=== PATIENT | male | born 1945 | race Caucasian/White ===

== ENCOUNTER 2020-02-13 09:28 | Inpatient (IN) ==
[2020-02-13] MEDS ORDERED: GLUCAGON 1 MG VIAL IM PRN ×3 (09:34→23:04)
[2020-02-13] MEDS ORDERED: DEXTROSE 50% 25 GM/50 ML VIAL IV PRN ×3 (09:34→23:04)
[2020-02-13] MEDS ORDERED: carvediloL 12.5 MG TABLET PO SCH (21:00)
[2020-02-13] MEDS: CHLORHEXIDINE 0.12% ORAL RINSE 60 ML BOTTLE SWISH/SPIT SCH (21:31)
[2020-02-13] MEDS: GABAPENTIN 300 MG CAPSULE PO SCH (21:32)
[2020-02-13] MEDS: METOPROLOL TARTRATE 25 MG TABLET PO SCH (21:32)
[2020-02-13] MEDS: SODIUM CHLORIDE 0.9% 1,000 ML IV SCH (21:32)
[2020-02-14 05:13] LABS: ABG HCO3 20.7 MMOL/L (20-26); ABG Oxygen Saturation 95.7 % (95-100); ABG PCO2 36.5 MM HG (35-48); ABG PH 7.371 (7.35-7.45); ABG PO2 82.8 MM HG (80-95); ABG TCO2 21.8 MMOL/L (23-27)
[2020-02-14 05:17] LABS: Basophils % 0.5 % (0.0-0.8); Eosinophils # 0.2 10*3/uL (0.0-0.87); Hematocrit 39.2 VOL% (42.0-52.0); Hemoglobin 12.5 GM/DL (14.0-18.0); Immature Granulocytes % 0.6 %; Immature Granulocytes Absolute 0.05 #; Lymphocytes # 2.3 10*3/uL (1.4-4.0); Lymphocytes % 27.9 % (21.2-54.2); Mean Corpuscular HGB Conc 31.9 GM/DL (32-36); Mean Corpuscular Volume 89.7 FL (87-102); Mean Platelet Volume 10.1 FL (9.6-12.0); Monocytes % 8.5 % (1.7-12.7); Neutrophils % 60.5 % (38.7-73.9); Platelet Count 319 T/CUMM (130-400); Red Blood Count 4.37 MC/CUMM (3.8-5.5); Red Cell Distribution Width 13.5 % (9.3-17.3); White Blood Count 8.3 T/CUMM (4-12)
[2020-02-14 05:39] LABS: Albumin 2.4 G/DL (3.4-5.0); Bilirubin,Total 1.1 MG/DL (0.2-1.0); Calcium 8.2 MG/DL (8.5-10.1); Osmolality,Calculated 294.4 MOS/KG (273-304); Total Protein 6.3 G/DL (6.4-8.3)
[2020-02-14 05:44] LABS: Troponin I 9.42 NG/ML (0.00-0.045)
[2020-02-14] MEDS: INSULIN LISPRO 100 UNIT/ML SUBCUT SCH ×4 (09:04→20:22)
[2020-02-14] MEDS: amLODIPine 5 MG TABLET PO SCH (09:57)
[2020-02-14] MEDS: ATORVASTATIN 80 MG TABLET PO SCH (09:57)
[2020-02-14] MEDS: METOPROLOL TARTRATE 25 MG TABLET PO SCH ×2 (09:57→20:22)
[2020-02-14] MEDS: GABAPENTIN 300 MG CAPSULE PO SCH ×2 (09:57→20:22)
[2020-02-14] MEDS: SODIUM CHLORIDE 0.9% 1,000 ML IV SCH (11:17)
[2020-02-14] MEDS ORDERED: DIAZEPAM 5 MG TABLET PO ONE (13:19)
[2020-02-14] MEDS ORDERED: FAMOTIDINE 20 MG TABLET PO ONE (13:19)
[2020-02-14] MEDS: CHLORHEXIDINE 4% SOLN 118 ML BOTTLE TOP SCH ×2 (14:30→21:35)
[2020-02-14] MEDS: CHLORHEXIDINE 0.12% ORAL RINSE 60 ML BOTTLE SWISH/SPIT SCH ×2 (18:00→20:23)
[2020-02-15] MEDS ORDERED: PAPAVERINE 60 MG/2 ML VIAL ONE (04:21)
[2020-02-15] MEDS ORDERED: VANCOMYCIN 500 MG VIAL ONE (04:22)
[2020-02-15] MEDS ORDERED: VANCOMYCIN 1,000 MG VIAL ONE (04:22)
[2020-02-15] MEDS: CHLORHEXIDINE 4% SOLN 118 ML BOTTLE TOP SCH ×2 (04:37→08:21)
[2020-02-15] MEDS ORDERED: LIDOCAINE 2% 5 ML VIAL ONE ×2 (05:39→10:30)
[2020-02-15] MEDS ORDERED: CALCIUM CHLORIDE 1,000 MG/10 ML VIAL IV ONE (05:39)
[2020-02-15] MEDS ORDERED: PHENYLEPHRINE DRIP 20 MG/250 ML PREMIX IV ONE (05:40)
[2020-02-15] MEDS ORDERED: MIDAZOLAM 10 MG/2 ML VIAL ONE (05:40)
[2020-02-15] MEDS ORDERED: SUFentanil 250 MCG/5 ML AMP ONE (05:40)
[2020-02-15] MEDS ORDERED: ePHEDrine 50 MG/ML VIAL ONE (05:40)
[2020-02-15] MEDS ORDERED: HEPARIN/NACL 0.9% 2 UNITS/ML 500 ML IV ONE (05:40)
[2020-02-15] MEDS ORDERED: SODIUM CHLORIDE 0.9% 250 ML IV ONE (05:41)
[2020-02-15] MEDS ORDERED: SODIUM CHLORIDE 0.9% 1,000 ML IV ONE (05:41)
[2020-02-15] MEDS ORDERED: SODIUM CHLORIDE 0.9% 100 ML IV ONE (05:41)
[2020-02-15] MEDS ORDERED: ETOMIDATE 40 MG/20 ML VIAL IV ONE (05:41)
[2020-02-15] MEDS ORDERED: MINERAL OIL/PETROLATUM OPH OINT 3.5 GM TUBE ONE (05:41)
[2020-02-15] MEDS ORDERED: VECURONIUM 10 MG VIAL IV ONE (05:41)
[2020-02-15] MEDS ORDERED: LACTATED RINGERS 1,000 ML IV ONE (05:41)
[2020-02-15] MEDS ORDERED: NITROGLYCERIN DRIP 50 MG/250 ML BOTTLE IV ONE ×2 (05:41→15:46)
[2020-02-15] MEDS ORDERED: AMINOCAPROIC ACID 5,000 MG/20 ML VIAL ONE (05:41)
[2020-02-15] MEDS: METOPROLOL TARTRATE 25 MG TABLET PO SCH ×2 (05:57→08:21)
[2020-02-15] MEDS ORDERED: CEFUROXIME INJ 1,500 MG in SYRINGE 1 EACH IV ONE (06:00)
[2020-02-15] MEDS ORDERED: DIAZEPAM 5 MG TABLET PO ONE (06:30)
[2020-02-15] MEDS ORDERED: FAMOTIDINE 20 MG TABLET PO ONE (06:30)
[2020-02-15 07:40] LABS: ABG Base Excess -4.1 MMOL/L (-2.5-2.5); ABG HCO3 21.1 MMOL/L (20-26); ABG PCO2 34.6 MM HG (35-48); ABG PH 7.377 (7.35-7.45); ABG TCO2 17.9 MMOL/L (23-27); Glucose Heart Surgery 155 MG/DL (74-106); Hematocrit Heart Surgery 38.7 PERCENT (42-52); Hemoglobin Heart Surgery 12.6 G/DL (14.0-18.0); Ionized Calcium Arterial 1.22 MMOL/L (1.21-1.46); PCO2 Patient Temp Arterial 34.6 MMHG; PH Patient Temp Arterial 7.377; Patient Temperature 37 CELCIUS; Potassium Heart/CVR 4.2 MMOL/L (3.5-5.1); Sodium Heart/CVR 138 MMOL/L (135-145)
[2020-02-15] MEDS ORDERED: ALBUMIN 5% 12.5 GM/250 ML VIAL IV ONE (08:00)
[2020-02-15] MEDS ORDERED: PHENYLEPHRINE DRIP 40 MG/250 ML PREMIX IV ONE (08:00)
[2020-02-15 08:08] LABS: Apearance,Urine CLEAR (Clear); Bilirubin,Urine Negative (Negative); Blood, Urine Small mg/dL (Negative); Glucose,Urine (UA) Negative (Negative); Ketones,Urine Negative (Negative); Mucus,Urine Occasional /LPF (Occasional); Nitrite,Urine Negative (Negative); Protein,Urine Negative; RBC,Urine <1 /HPF (0-4); Urine Color Yellow (Yellow); Urine Specific Gravity 1.012 (1.001-1.035); Urine Urobilinogen < 2.0 EU/DL (0.2-1.0); WBC,Urine <1 /HPF (0-6)
[2020-02-15] MEDS: INSULIN LISPRO 100 UNIT/ML SUBCUT SCH ×2 (08:21→10:43)
[2020-02-15] MEDS: ATORVASTATIN 80 MG TABLET PO SCH (08:21)
[2020-02-15] MEDS: GABAPENTIN 300 MG CAPSULE PO SCH (08:22)
[2020-02-15] MEDS: amLODIPine 5 MG TABLET PO SCH (08:22)
[2020-02-15] MEDS: CHLORHEXIDINE 0.12% ORAL RINSE 60 ML BOTTLE SWISH/SPIT SCH ×2 (08:22→21:47)
[2020-02-15 09:09] LABS: PCO2 Patient Temp Venous 30.3 MM HG; PH Patient Temp Venous 7.458; PO2 Patient Temp Venous 50.7 MM HG; Potassium Heart/CVR 4.8 MMOL/L (3.5-5.1); VBG Base Excess -1.8 MEQ/L (0-4); VBG HCO3 22.8 MEQ/L (24-28); VBG Oxygen Saturation 91.8 %; VBG PCO2 33.4 MMHG (41-51); VBG PH 7.428; VBG PO2 57.9 MMHG (17-40)
[2020-02-15 09:34] LABS: Hematocrit Heart Surgery 26.7 PERCENT (42-52); Hemoglobin Heart Surgery 8.6 G/DL (14.0-18.0); PCO2 Patient Temp Venous 28.2 MM HG; PH Patient Temp Venous 7.473; PO2 Patient Temp Venous 41.1 MM HG; Potassium Heart/CVR 4.9 MMOL/L (3.5-5.1); VBG Base Excess -2.2 MEQ/L (0-4); VBG HCO3 22.4 MEQ/L (24-28); VBG Oxygen Saturation 87.3 %; VBG PCO2 32.6 MMHG (41-51); VBG PH 7.428; VBG PO2 50.4 MMHG (17-40)
[2020-02-15] MEDS ORDERED: THROMBIN TOPICAL (RECOMBINANT) 5,000 UNIT VIAL TOP ONE (10:04)
[2020-02-15 10:30] LABS: ABG Base Excess -2.2 MMOL/L (-2.5-2.5); ABG HCO3 21.8 MMOL/L (20-26); ABG Oxygen Saturation 98.9 % (95-100); ABG PCO2 34.1 MM HG (35-48); ABG PH 7.423 (7.35-7.45); ABG PO2 458.3 MM HG (80-95); ABG TCO2 22.8 MMOL/L (23-27); Glucose Heart Surgery 223 MG/DL (74-106); Hemoglobin Heart Surgery 9.5 G/DL (14.0-18.0); Ionized Calcium Arterial 1.13 MMOL/L (1.21-1.46); PCO2 Patient Temp Arterial 34.1 MMHG; PH Patient Temp Arterial 7.423; PO2 Patient Temp Arterial 458.3 MM HG; Patient Temperature 37 CELCIUS; Potassium Heart/CVR 4.6 MMOL/L (3.5-5.1); Sodium Heart/CVR 133 MMOL/L (135-145)
[2020-02-15] MEDS ORDERED: ALBUMIN 25% 25 GM/100 ML VIAL IV ONE (10:30)
[2020-02-15] MEDS ORDERED: DEXTROSE 5% KCL 20 MEQ 20 MEQ/1,000 ML BAG IV ONE (10:30)
[2020-02-15] MEDS ORDERED: HEPARIN 10,000 UNIT/10 ML VIAL ONE (10:30)
[2020-02-15] MEDS ORDERED: MAGNESIUM SULFATE 5 GM/10 ML VIAL IV ONE (10:30)
[2020-02-15] MEDS ORDERED: PROTAMINE SULFATE 250 MG/25 ML VIAL IV ONE (10:30)
[2020-02-15] MEDS ORDERED: methylPREDNISolone SOD SUC 1,000 MG/8 ML VIAL ONE (10:30)
[2020-02-15] MEDS ORDERED: SODIUM BICARBONATE 50 MEQ/50 ML VIAL IV ONE (10:30)
[2020-02-15] MEDS ORDERED: MANNITOL 100 GM/500 ML BAG IV ONE (10:30)
[2020-02-15] MEDS ORDERED: FUROSEMIDE 20 MG/2 ML VIAL ONE (10:30)
[2020-02-15] MEDS: SODIUM CHLORIDE 0.9% 1,000 ML IV SCH (10:43)
[2020-02-15] MEDS ORDERED: DOBUTamine 500 MG/250 ML PREMIX IV ONE (10:50)
[2020-02-15] MEDS ORDERED: DOBUTamine 500 MG/250 ML PREMIX IV PRN (11:08)
[2020-02-15] MEDS: LACTATED RINGERS 1,000 ML IV PRN ×2 (11:15→16:13)
[2020-02-15] MEDS ORDERED: SEVOFLURANE 1 UNIT/15 MINUTE INH ONE (11:24)
[2020-02-15] MEDS ORDERED: PHENYLEPHRINE DRIP 40 MG/250 ML PREMIX IV PRN (11:32)
[2020-02-15] MEDS ORDERED: CHLORHEXIDINE 4% SOLN 118 ML BOTTLE TOP PRN (11:32)
[2020-02-15] MEDS ORDERED: MAGNESIUM SULF RIDER 2 GM in PREMIX 1 EACH IV PRN (11:32)
[2020-02-15] MEDS ORDERED: NITROPRUSSIDE 100 MG in DEXTROSE 5% 250 ML IV PRN (11:32)
[2020-02-15] MEDS ORDERED: VECURONIUM 10 MG VIAL IV PRN ×2 (11:32)
[2020-02-15] MEDS ORDERED: DEXTROSE 50% 25 GM/50 ML VIAL IV PRN ×2 (11:32)
[2020-02-15] MEDS ORDERED: MORPHINE 10 MG/1 ML VIAL IV PRN (11:32)
[2020-02-15] MEDS ORDERED: SODIUM CHLORIDE 0.45% 1,000 ML IV SCH ×2 (11:32)
[2020-02-15] MEDS ORDERED: INSULIN REGULAR 100 UNIT/ML IV ONE (11:32)
[2020-02-15] MEDS ORDERED: MAGNESIUM SULF RIDER 4 GM in PREMIX 1 EACH IV PRN (11:32)
[2020-02-15] MEDS ORDERED: MIDAZOLAM 10 MG/2 ML VIAL IV PRN (11:32)
[2020-02-15] MEDS ORDERED: ACETAMINOPHEN 650 MG SUPP RECTAL PRN (11:32)
[2020-02-15] MEDS ORDERED: LACTATED RINGERS 250 ML IV PRN (11:32)
[2020-02-15] MEDS ORDERED: MIDAZOLAM 2 MG/2 ML VIAL IV PRN (11:32)
[2020-02-15] MEDS ORDERED: POTASSIUM CHLORIDE RIDER 20 MEQ in PREMIX 1 EACH IV PRN (11:32)
[2020-02-15] MEDS ORDERED: INSULIN REGULAR 100 UNIT/ML IV PRN (11:32)
[2020-02-15] MEDS ORDERED: INSULIN REGULAR DRIP 100 ML IV SCH (11:32)
[2020-02-15] MEDS ORDERED: CALCIUM CHLORIDE 1,000 MG/10 ML SYRINGE IV PRN (11:32)
[2020-02-15] MEDS ORDERED: ONDANSETRON 4 MG/2 ML VIAL IV PRN (11:32)
[2020-02-15 11:39] LABS: ABG Base Excess -2.4 MMOL/L (-2.5-2.5); ABG HCO3 22.4 MMOL/L (20-26); ABG Oxygen Saturation 98.2 % (95-100); ABG PCO2 33.5 MM HG (35-48); ABG PH 7.414 (7.35-7.45); ABG TCO2 19.1 MMOL/L (23-27); Glucose Heart Surgery 218 MG/DL (74-106); Hemoglobin Heart Surgery 11.3 G/DL (14.0-18.0); Potassium Heart/CVR 3.8 MMOL/L (3.5-5.1)
[2020-02-15 11:42] LABS: Basophils % 0.3 % (0.0-0.8); Eosinophils # 0.1 10*3/uL (0.0-0.87); Eosinophils % 0.5 % (0.00-10.9); Hematocrit 30.6 VOL% (42.0-52.0); Hemoglobin 10.1 GM/DL (14.0-18.0); Immature Granulocytes Absolute 0.12 #; Lymphocytes # 1.2 10*3/uL (1.4-4.0); Lymphocytes % 10.1 % (21.2-54.2); Mean Corpuscular Volume 87.9 FL (87-102); Monocytes % 4.8 % (1.7-12.7); Neutrophils % 83.3 % (38.7-73.9); Platelet Count 218 T/CUMM (130-400); Red Blood Count 3.48 MC/CUMM (3.8-5.5); Red Cell Distribution Width 13.4 % (9.3-17.3); White Blood Count 11.9 T/CUMM (4-12)
[2020-02-15] MEDS: ALBUMIN 5% 12.5 GM in PREMIX 1 EACH IV PRN ×5 (11:45→16:15)
[2020-02-15 12:04] LABS: INR 1.4; PT Patient Result 14.6 SECS (9.8-11.9); Partial Thromboplastin Time 31.7 SECS (23.9-33.8)
[2020-02-15 12:05] LABS: Albumin 2.4 G/DL (3.4-5.0); Bilirubin,Total 1.9 MG/DL (0.2-1.0); Calcium 7.9 MG/DL (8.5-10.1); Osmolality,Calculated 290.5 MOS/KG (273-304); Total Protein 5.5 G/DL (6.4-8.3)
[2020-02-15 12:07] LABS: CKMB % 9.9 %
[2020-02-15 12:10] LABS: Troponin I 13.2 NG/ML (0.00-0.045)
[2020-02-15 12:54] LABS: ABG Base Excess -4.4 MMOL/L (-2.5-2.5); ABG Oxygen Saturation 96.9 % (95-100); ABG PCO2 29.4 MM HG (35-48); ABG PH 7.428 (7.35-7.45); ABG PO2 95.7 MM HG (80-95); ABG TCO2 19.9 MMOL/L (23-27); Glucose Heart Surgery 211 MG/DL (74-106); Hemoglobin Heart Surgery 10.9 G/DL (14.0-18.0); Potassium Heart/CVR 3.7 MMOL/L (3.5-5.1)
[2020-02-15] MEDS: POTASSIUM CHLORIDE RIDER 10 MEQ in PREMIX 1 EACH IV PRN (13:00)
[2020-02-15 13:30] LABS: VBG Base Excess -2.9 MEQ/L (0-4); VBG HCO3 21.3 MEQ/L (24-28); VBG Oxygen Saturation 56.9 %; VBG PCO2 36.4 MMHG (41-51); VBG PH 7.382
[2020-02-15 14:15] LABS: ABG Base Excess -4.5 MMOL/L (-2.5-2.5); ABG HCO3 18.9 MMOL/L (20-26); ABG Oxygen Saturation 95.6 % (95-100); ABG PCO2 29.6 MM HG (35-48); ABG PH 7.424 (7.35-7.45); ABG PO2 83.1 MM HG (80-95); ABG TCO2 19.9 MMOL/L (23-27); Glucose Heart Surgery 190 MG/DL (74-106); Hemoglobin Heart Surgery 10.6 G/DL (14.0-18.0)
[2020-02-15 15:52] LABS: ABG Base Excess -2.6 MMOL/L (-2.5-2.5); ABG HCO3 22.2 MMOL/L (20-26); ABG Oxygen Saturation 98.8 % (95-100); ABG PH 7.435 (7.35-7.45); Glucose Heart Surgery 184 MG/DL (74-106); Hematocrit Heart Surgery 29.5 PERCENT (42-52); Hemoglobin Heart Surgery 9.5 G/DL (14.0-18.0); Potassium Heart/CVR 3.9 MMOL/L (3.5-5.1)
[2020-02-15] MEDS ORDERED: NITROGLYCERIN DRIP 50 MG/250 ML BOTTLE IV PRN (15:54)
[2020-02-15] MEDS: MORPHINE 4 MG/1 ML VIAL IV PRN ×2 (19:40→22:50)
[2020-02-15] MEDS: CEFUROXIME INJ 1,500 MG in SYRINGE 1 EACH IV SCH (19:43)
[2020-02-15 19:54] LABS: ABG Base Excess -2.3 MMOL/L (-2.5-2.5); ABG HCO3 22.5 MMOL/L (20-26); ABG Oxygen Saturation 98.9 % (95-100); ABG PCO2 33.3 MM HG (35-48); ABG PH 7.422 (7.35-7.45); ABG TCO2 20.1 MMOL/L (23-27); Glucose Heart Surgery 180 MG/DL (74-106); Hematocrit Heart Surgery 25.7 PERCENT (42-52); Hemoglobin Heart Surgery 8.3 G/DL (14.0-18.0); Potassium Heart/CVR 3.9 MMOL/L (3.5-5.1)
[2020-02-15 20:41] LABS: CKMB % 7.8 %
[2020-02-15 20:44] LABS: Troponin I 14.4 NG/ML (0.00-0.045)
[2020-02-15 21:58] LABS: ABG Base Excess -3.3 MMOL/L (-2.5-2.5); ABG HCO3 21.7 MMOL/L (20-26); ABG Oxygen Saturation 98.1 % (95-100); ABG PCO2 33.5 MM HG (35-48); ABG PO2 97.5 MM HG (80-95); ABG TCO2 18.7 MMOL/L (23-27); Glucose Heart Surgery 175 MG/DL (74-106); Hematocrit Heart Surgery 33.5 PERCENT (42-52); Hemoglobin Heart Surgery 10.8 G/DL (14.0-18.0); Potassium Heart/CVR 3.9 MMOL/L (3.5-5.1)
[2020-02-15 23:37] LABS: ABG Base Excess -3.6 MMOL/L (-2.5-2.5); ABG HCO3 20.6 MMOL/L (20-26); ABG Oxygen Saturation 97.4 % (95-100); ABG PCO2 34.3 MM HG (35-48); ABG PH 7.396 (7.35-7.45); ABG PO2 105.7 MM HG (80-95); ABG TCO2 21.6 MMOL/L (23-27); Glucose Heart Surgery 126 MG/DL (74-106); Hemoglobin Heart Surgery 11.3 G/DL (14.0-18.0); Potassium Heart/CVR 3.7 MMOL/L (3.5-5.1)
[2020-02-16] MEDS: ALBUMIN 5% 12.5 GM in PREMIX 1 EACH IV PRN ×2 (00:07→00:19)
[2020-02-16] MEDS: POTASSIUM CHLORIDE RIDER 10 MEQ in PREMIX 1 EACH IV PRN (00:31)
[2020-02-16 03:35] LABS: ABG Base Excess -5.5 MMOL/L (-2.5-2.5); ABG HCO3 19.9 MMOL/L (20-26); ABG Oxygen Saturation 98.1 % (95-100); ABG PCO2 36.4 MM HG (35-48); ABG PH 7.341 (7.35-7.45); ABG TCO2 17.9 MMOL/L (23-27); Glucose Heart Surgery 166 MG/DL (74-106); Hematocrit Heart Surgery 31.7 PERCENT (42-52); Hemoglobin Heart Surgery 10.3 G/DL (14.0-18.0); Potassium Heart/CVR 4.2 MMOL/L (3.5-5.1)
[2020-02-16 03:42] LABS: Basophils % 0.1 % (0.0-0.8); Hematocrit 28.9 VOL% (42.0-52.0); Hemoglobin 9.6 GM/DL (14.0-18.0); Immature Granulocytes % 0.3 %; Immature Granulocytes Absolute 0.04 #; Lymphocytes # 0.9 10*3/uL (1.4-4.0); Lymphocytes % 7.5 % (21.2-54.2); Mean Corpuscular HGB Conc 33.2 GM/DL (32-36); Mean Corpuscular Volume 87.8 FL (87-102); Mean Platelet Volume 10.7 FL (9.6-12.0); Monocytes % 3.3 % (1.7-12.7); Neutrophils % 88.8 % (38.7-73.9); Platelet Count 153 T/CUMM (130-400); Red Blood Count 3.29 MC/CUMM (3.8-5.5); Red Cell Distribution Width 13.6 % (9.3-17.3); White Blood Count 12.3 T/CUMM (4-12)
[2020-02-16 03:59] LABS: Albumin 3.5 G/DL (3.4-5.0); Bilirubin,Direct 0.52 MG/DL (0.0-0.20); Bilirubin,Total 1.8 MG/DL (0.2-1.0); Calcium 7.4 MG/DL (8.5-10.1); Osmolality,Calculated 289.3 MOS/KG (273-304); Total Protein 5.7 G/DL (6.4-8.3)
[2020-02-16 04:44] LABS: CKMB % 10.2 %
[2020-02-16 05:05] LABS: ABG HCO3 19.5 MMOL/L (20-26); ABG Oxygen Saturation 97.3 % (95-100); ABG PCO2 36.8 MM HG (35-48); ABG TCO2 17.7 MMOL/L (23-27); Glucose Heart Surgery 199 MG/DL (74-106); Hematocrit Heart Surgery 31.8 PERCENT (42-52); Hemoglobin Heart Surgery 10.3 G/DL (14.0-18.0); Potassium Heart/CVR 4.1 MMOL/L (3.5-5.1)
[2020-02-16] MEDS ORDERED: FUROSEMIDE 40 MG/4 ML VIAL ONE (05:10)
[2020-02-16] MEDS ORDERED: FUROSEMIDE 40 MG/4 ML VIAL IV ONE (05:30)
[2020-02-16 06:13] LABS: ABG Base Excess -5.5 MMOL/L (-2.5-2.5); ABG HCO3 19.9 MMOL/L (20-26); ABG Oxygen Saturation 97.4 % (95-100); ABG PCO2 35.8 MM HG (35-48); ABG PH 7.346 (7.35-7.45); ABG PO2 94.9 MM HG (80-95); ABG TCO2 17.8 MMOL/L (23-27); Glucose Heart Surgery 194 MG/DL (74-106); Hematocrit Heart Surgery 32.2 PERCENT (42-52); Hemoglobin Heart Surgery 10.4 G/DL (14.0-18.0)
[2020-02-16] MEDS: CEFUROXIME INJ 1,500 MG in SYRINGE 1 EACH IV SCH ×2 (06:54→19:40)
[2020-02-16] MEDS: INSULIN REGULAR 100 UNIT/ML SUBCUT SCH ×4 (08:50→20:14)
[2020-02-16] MEDS: CHLORHEXIDINE 0.12% ORAL RINSE 60 ML BOTTLE SWISH/SPIT SCH ×2 (08:52→20:31)
[2020-02-16] MEDS: SODIUM CHLOR 0.45% KCL 20 MEQ 20 MEQ/1,000 ML BAG IV SCH (08:52)
[2020-02-16] MEDS: carvediloL 12.5 MG TABLET PO SCH ×2 (09:32→21:46)
[2020-02-16] MEDS: AMIODARONE 200 MG TABLET PO SCH ×2 (09:32→21:41)
[2020-02-16] MEDS: GABAPENTIN 600 MG TABLET PO SCH (09:32)
[2020-02-16] MEDS: ASPIRIN EC 325 MG TABLET PO SCH (09:32)
[2020-02-16] MEDS: PANTOPRAZOLE 40 MG TABLET PO SCH (09:32)
[2020-02-16 11:15] LABS: CKMB % 12.5 %
[2020-02-16] MEDS: oxyCODONE/ACETAMINOPHEN 5-325 MG TABLET PO PRN (18:15)
[2020-02-16 18:29] LABS: CKMB % 11.5 %
[2020-02-16 18:30] LABS: Troponin I 19.1 NG/ML (0.00-0.045)
[2020-02-16] MEDS ORDERED: FUROSEMIDE 40 MG/4 ML VIAL IV PRN (20:32)
[2020-02-16] MEDS: ATORVASTATIN 40 MG TABLET PO SCH (21:41)
[2020-02-17] MEDS: INSULIN REGULAR 100 UNIT/ML SUBCUT SCH ×5 (01:03→21:42)
[2020-02-17 04:05] LABS: Basophils % 0.1 % (0.0-0.8); Hematocrit 34.1 VOL% (42.0-52.0); Hemoglobin 11.2 GM/DL (14.0-18.0); Immature Granulocytes % 0.4 %; Immature Granulocytes Absolute 0.07 #; Lymphocytes # 1.1 10*3/uL (1.4-4.0); Mean Corpuscular HGB Conc 32.8 GM/DL (32-36); Mean Corpuscular Volume 88.8 FL (87-102); Mean Platelet Volume 11.1 FL (9.6-12.0); Monocytes % 7.7 % (1.7-12.7); Neutrophils % 85.8 % (38.7-73.9); Platelet Count 175 T/CUMM (130-400); Red Blood Count 3.84 MC/CUMM (3.8-5.5); Red Cell Distribution Width 14.2 % (9.3-17.3)
[2020-02-17 04:29] LABS: Albumin 3.4 G/DL (3.4-5.0); Bilirubin,Direct 0.45 MG/DL (0.0-0.20); Bilirubin,Total 1.3 MG/DL (0.2-1.0); Calcium 8.4 MG/DL (8.5-10.1); Osmolality,Calculated 291.5 MOS/KG (273-304); Total Protein 6.5 G/DL (6.4-8.3)
[2020-02-17 04:53] LABS: CKMB % 10.6 %
[2020-02-17 04:56] LABS: Troponin I 17.4 NG/ML (0.00-0.045)
[2020-02-17] MEDS: ASPIRIN EC 325 MG TABLET PO SCH (08:18)
[2020-02-17] MEDS: CHLORHEXIDINE 0.12% ORAL RINSE 60 ML BOTTLE SWISH/SPIT SCH ×3 (08:18→21:45)
[2020-02-17] MEDS: carvediloL 12.5 MG TABLET PO SCH ×2 (08:18→21:42)
[2020-02-17] MEDS: AMIODARONE 200 MG TABLET PO SCH ×2 (08:18→21:41)
[2020-02-17] MEDS: GABAPENTIN 600 MG TABLET PO SCH (08:18)
[2020-02-17] MEDS: PANTOPRAZOLE 40 MG TABLET PO SCH (08:18)
[2020-02-17] MEDS ORDERED: SODIUM CHLOR 0.45% KCL 20 MEQ 20 MEQ/1,000 ML BAG IV SCH (12:42)
[2020-02-17] MEDS ORDERED: GLUCAGON 1 MG VIAL IM PRN ×2 (12:42→20:55)
[2020-02-17] MEDS ORDERED: ACETAMINOPHEN 325 MG TABLET PO PRN (12:42)
[2020-02-17] MEDS ORDERED: ONDANSETRON 4 MG/2 ML VIAL IV PRN (12:42)
[2020-02-17] MEDS ORDERED: ALUMINUM/MAGNES/SIMETH MAX STR 30 ML UDCUP PO PRN (12:42)
[2020-02-17] MEDS ORDERED: DEXTROSE 50% 25 GM/50 ML VIAL IV PRN ×2 (12:42→20:55)
[2020-02-17] MEDS ORDERED: ZALEPLON 5 MG CAPSULE PO PRN (12:42)
[2020-02-17] MEDS ORDERED: MAGNESIUM SULF RIDER 4 GM in PREMIX 1 EACH IV PRN (12:42)
[2020-02-17] MEDS ORDERED: MAGNESIUM SULF RIDER 2 GM in PREMIX 1 EACH IV PRN (12:42)
[2020-02-17] MEDS: FERROUS SULFATE 325 MG TABLET PO SCH (13:04)
[2020-02-17] MEDS: SODIUM CHLOR 0.45% KCL 20 MEQ 20 MEQ/1,000 ML BAG IV SCH (13:05)
[2020-02-17] MEDS: DOCUSATE SODIUM 100 MG CAPSULE PO SCH (13:08)
[2020-02-17] MEDS: MAGNESIUM HYDROXIDE SUSP 30 ML UDCUP PO PRN (21:41)
[2020-02-17] MEDS: ATORVASTATIN 40 MG TABLET PO SCH (21:42)
[2020-02-18 05:32] LABS: Basophils % 0.1 % (0.0-0.8); Eosinophils % 0.1 % (0.00-10.9); Hematocrit 35.6 VOL% (42.0-52.0); Hemoglobin 11.5 GM/DL (14.0-18.0); Immature Granulocytes % 0.6 %; Lymphocytes # 1.7 10*3/uL (1.4-4.0); Mean Corpuscular HGB Conc 32.3 GM/DL (32-36); Mean Corpuscular Volume 90.1 FL (87-102); Mean Platelet Volume 11.2 FL (9.6-12.0); Monocytes % 11.3 % (1.7-12.7); Neutrophils % 76.9 % (38.7-73.9); Platelet Count 175 T/CUMM (130-400); Red Blood Count 3.95 MC/CUMM (3.8-5.5); Red Cell Distribution Width 14.4 % (9.3-17.3); White Blood Count 15.6 T/CUMM (4-12)
[2020-02-18] MEDS ORDERED: FUROSEMIDE 40 MG/4 ML VIAL IV ONE (06:00)
[2020-02-18 06:03] LABS: Albumin 3.2 G/DL (3.4-5.0); Bilirubin,Direct 0.37 MG/DL (0.0-0.20); Bilirubin,Direct 0.38 MG/DL (0.0-0.20); Bilirubin,Indirect 1.3 MG/DL (0.0-1.0); Bilirubin,Total 1.7 MG/DL (0.2-1.0); CKMB % 7.6 %; Calcium 8.2 MG/DL (8.5-10.1); Osmolality,Calculated 294.4 MOS/KG (273-304); Total Protein 6.4 G/DL (6.4-8.3); Total Protein 6.5 G/DL (6.4-8.3)
[2020-02-18 06:04] LABS: Troponin I 11.9 NG/ML (0.00-0.045)
[2020-02-18] MEDS: carvediloL 12.5 MG TABLET PO SCH ×2 (08:35→20:29)
[2020-02-18] MEDS: GABAPENTIN 600 MG TABLET PO SCH (08:35)
[2020-02-18] MEDS: DOCUSATE SODIUM 100 MG CAPSULE PO SCH (08:35)
[2020-02-18] MEDS: ASPIRIN EC 325 MG TABLET PO SCH (08:35)
[2020-02-18] MEDS: AMIODARONE 200 MG TABLET PO SCH ×2 (08:35→20:27)
[2020-02-18] MEDS: glipiZIDE 5 MG TABLET PO SCH (08:35)
[2020-02-18] MEDS: FERROUS SULFATE 325 MG TABLET PO SCH (08:36)
[2020-02-18] MEDS: INSULIN REGULAR 100 UNIT/ML SUBCUT SCH ×4 (08:36→20:29)
[2020-02-18] MEDS: CHLORHEXIDINE 0.12% ORAL RINSE 60 ML BOTTLE SWISH/SPIT SCH ×2 (08:39→20:28)
[2020-02-18] MEDS: ATORVASTATIN 40 MG TABLET PO SCH (20:27)
[2020-02-19 06:05] LABS: Basophils % 0.2 % (0.0-0.8); Eosinophils # 0.2 10*3/uL (0.0-0.87); Eosinophils % 1.3 % (0.00-10.9); Hematocrit 36.9 VOL% (42.0-52.0); Hemoglobin 12.1 GM/DL (14.0-18.0); Immature Granulocytes % 1.3 %; Immature Granulocytes Absolute 0.18 #; Lymphocytes # 2.4 10*3/uL (1.4-4.0); Lymphocytes % 16.8 % (21.2-54.2); Mean Corpuscular HGB Conc 32.8 GM/DL (32-36); Mean Corpuscular Volume 88.5 FL (87-102); Mean Platelet Volume 11.8 FL (9.6-12.0); Monocytes % 9.9 % (1.7-12.7); Neutrophils % 70.5 % (38.7-73.9); Platelet Count 208 T/CUMM (130-400); Red Blood Count 4.17 MC/CUMM (3.8-5.5); Red Cell Distribution Width 14.4 % (9.3-17.3); White Blood Count 14.4 T/CUMM (4-12)
[2020-02-19 06:48] LABS: Albumin 3.1 G/DL (3.4-5.0); Bilirubin,Direct 0.42 MG/DL (0.0-0.20); Bilirubin,Indirect 1.1 MG/DL (0.0-1.0); Bilirubin,Total 1.5 MG/DL (0.2-1.0); CKMB % 5.9 %; Calcium 8.9 MG/DL (8.5-10.1); Osmolality,Calculated 291.7 MOS/KG (273-304); Total Protein 6.5 G/DL (6.4-8.3)
[2020-02-19 06:49] LABS: Calcium 8.7 MG/DL (8.5-10.1)
[2020-02-19] MEDS: INSULIN REGULAR 100 UNIT/ML SUBCUT SCH ×4 (08:01→20:54)
[2020-02-19] MEDS: oxyCODONE/ACETAMINOPHEN 5-325 MG TABLET PO PRN ×2 (08:16→17:51)
[2020-02-19] MEDS: MAGNESIUM HYDROXIDE SUSP 30 ML UDCUP PO PRN (08:17)
[2020-02-19] MEDS: DOCUSATE SODIUM 100 MG CAPSULE PO SCH (08:17)
[2020-02-19] MEDS: AMIODARONE 200 MG TABLET PO SCH ×2 (08:17→20:57)
[2020-02-19] MEDS: POTASSIUM CHLORIDE 20 MEQ TABLET PO PRN ×2 (08:18→09:08)
[2020-02-19] MEDS: glipiZIDE 5 MG TABLET PO SCH (08:18)
[2020-02-19] MEDS: GABAPENTIN 600 MG TABLET PO SCH (08:18)
[2020-02-19] MEDS: FERROUS SULFATE 325 MG TABLET PO SCH (08:18)
[2020-02-19] MEDS: ASPIRIN EC 325 MG TABLET PO SCH (08:18)
[2020-02-19] MEDS: carvediloL 12.5 MG TABLET PO SCH ×3 (08:18→21:16)
[2020-02-19] MEDS ORDERED: LACTULOSE 20 GM/30 ML UDCUP PO PRN (09:18)
[2020-02-19] MEDS: CHLORHEXIDINE 0.12% ORAL RINSE 60 ML BOTTLE SWISH/SPIT SCH ×2 (10:00→21:16)
[2020-02-19] MEDS: POLYETHYLENE GLYCOL POWDER 17 GM PACK PO SCH (12:11)
[2020-02-19] MEDS: ATORVASTATIN 40 MG TABLET PO SCH (20:57)
[2020-02-20 04:49] LABS: Basophils % 0.3 % (0.0-0.8); Eosinophils # 0.3 10*3/uL (0.0-0.87); Eosinophils % 2.5 % (0.00-10.9); Hematocrit 37.9 VOL% (42.0-52.0); Hemoglobin 12.1 GM/DL (14.0-18.0); Immature Granulocytes % 2.3 %; Lymphocytes # 2.5 10*3/uL (1.4-4.0); Lymphocytes % 19.1 % (21.2-54.2); Mean Corpuscular HGB Conc 31.9 GM/DL (32-36); Mean Corpuscular Volume 90.2 FL (87-102); Mean Platelet Volume 10.9 FL (9.6-12.0); Monocytes % 10.5 % (1.7-12.7); Neutrophils % 65.3 % (38.7-73.9); Platelet Count 236 T/CUMM (130-400); Red Cell Distribution Width 14.3 % (9.3-17.3); White Blood Count 12.8 T/CUMM (4-12)
[2020-02-20 05:14] LABS: CKMB % 4.7 %; Calcium 8.6 MG/DL (8.5-10.1); Osmolality,Calculated 290.7 MOS/KG (273-304)
[2020-02-20 05:28] LABS: Troponin I 9.85 NG/ML (0.00-0.045)
[2020-02-20] MEDS: INSULIN REGULAR 100 UNIT/ML SUBCUT SCH ×4 (07:59→21:03)
[2020-02-20] MEDS: POLYETHYLENE GLYCOL POWDER 17 GM PACK PO SCH (08:50)
[2020-02-20] MEDS: DOCUSATE SODIUM 100 MG CAPSULE PO SCH (08:50)
[2020-02-20] MEDS: GABAPENTIN 600 MG TABLET PO SCH (08:50)
[2020-02-20] MEDS: ASPIRIN EC 325 MG TABLET PO SCH (08:50)
[2020-02-20] MEDS: FERROUS SULFATE 325 MG TABLET PO SCH (08:51)
[2020-02-20] MEDS: carvediloL 12.5 MG TABLET PO SCH ×2 (08:51→21:05)
[2020-02-20] MEDS: AMIODARONE 200 MG TABLET PO SCH ×2 (08:51→21:05)
[2020-02-20] MEDS: glipiZIDE 5 MG TABLET PO SCH (08:52)
[2020-02-20] MEDS: CHLORHEXIDINE 0.12% ORAL RINSE 60 ML BOTTLE SWISH/SPIT SCH ×2 (09:36→21:06)
[2020-02-20] MEDS: ATORVASTATIN 40 MG TABLET PO SCH (21:06)
[2020-02-21 05:38] LABS: Basophils % 0.3 % (0.0-0.8); Eosinophils # 0.3 10*3/uL (0.0-0.87); Eosinophils % 2.5 % (0.00-10.9); Hematocrit 36.3 VOL% (42.0-52.0); Hemoglobin 11.7 GM/DL (14.0-18.0); Immature Granulocytes Absolute 0.24 #; Lymphocytes # 2.2 10*3/uL (1.4-4.0); Mean Corpuscular HGB Conc 32.2 GM/DL (32-36); Mean Corpuscular Volume 89.9 FL (87-102); Mean Platelet Volume 11.2 FL (9.6-12.0); Monocytes % 9.7 % (1.7-12.7); Neutrophils % 67.5 % (38.7-73.9); Platelet Count 236 T/CUMM (130-400); Red Blood Count 4.04 MC/CUMM (3.8-5.5); Red Cell Distribution Width 14.5 % (9.3-17.3); White Blood Count 12.2 T/CUMM (4-12)
[2020-02-21 06:35] LABS: Alanine Aminotransferase 57 U/L (16-61); Albumin 2.8 G/DL (3.4-5.0); Alkaline Phosphatase 84 U/L (45-117); Aspartate Amino Transferase 48 U/L (0-37); Bilirubin,Indirect 1.4 MG/DL (0.0-1.0); Blood Urea Nitrogen 49 MG/DL (7-18); Calcium 8.9 MG/DL (8.5-10.1); Estimated Glom Filtration Rate 28 ML/MIN; Glucose 101 MG/DL (74-106); Osmolality,Calculated 287.7 MOS/KG (273-304); Total Protein 6.2 G/DL (6.4-8.3)
[2020-02-21] MEDS: INSULIN REGULAR 100 UNIT/ML SUBCUT SCH ×4 (08:17→21:32)
[2020-02-21] MEDS: FERROUS SULFATE 325 MG TABLET PO SCH (09:26)
[2020-02-21] MEDS: AMIODARONE 200 MG TABLET PO SCH ×2 (09:26→20:53)
[2020-02-21] MEDS: DOCUSATE SODIUM 100 MG CAPSULE PO SCH (09:26)
[2020-02-21] MEDS: GABAPENTIN 600 MG TABLET PO SCH (09:26)
[2020-02-21] MEDS: ASPIRIN EC 325 MG TABLET PO SCH (09:26)
[2020-02-21] MEDS: POLYETHYLENE GLYCOL POWDER 17 GM PACK PO SCH (09:27)
[2020-02-21] MEDS: glipiZIDE 5 MG TABLET PO SCH (09:27)
[2020-02-21] MEDS: carvediloL 12.5 MG TABLET PO SCH ×2 (09:28→21:32)
[2020-02-21] MEDS: CHLORHEXIDINE 0.12% ORAL RINSE 60 ML BOTTLE SWISH/SPIT SCH ×2 (10:03→20:54)
[2020-02-21] MEDS: ATORVASTATIN 40 MG TABLET PO SCH (20:53)
[2020-02-22 05:58] LABS: Basophils % 0.2 % (0.0-0.8); Eosinophils # 0.4 10*3/uL (0.0-0.87); Eosinophils % 2.8 % (0.00-10.9); Hematocrit 37.6 VOL% (42.0-52.0); Immature Granulocytes % 1.7 %; Immature Granulocytes Absolute 0.23 #; Lymphocytes # 2.6 10*3/uL (1.4-4.0); Lymphocytes % 19.2 % (21.2-54.2); Mean Corpuscular HGB Conc 31.9 GM/DL (32-36); Mean Corpuscular Volume 90.8 FL (87-102); Mean Platelet Volume 10.9 FL (9.6-12.0); Monocytes % 8.3 % (1.7-12.7); Neutrophils % 67.8 % (38.7-73.9); Platelet Count 261 T/CUMM (130-400); Red Blood Count 4.14 MC/CUMM (3.8-5.5); Red Cell Distribution Width 14.5 % (9.3-17.3); White Blood Count 13.3 T/CUMM (4-12)
[2020-02-22 06:15] LABS: Calcium 8.5 MG/DL (8.5-10.1); Osmolality,Calculated 286.7 MOS/KG (273-304)
[2020-02-22 06:37] LABS: Alanine Aminotransferase 55 U/L (16-61); Albumin 2.6 G/DL (3.4-5.0); Alkaline Phosphatase 92 U/L (45-117); Aspartate Amino Transferase 44 U/L (0-37); Bilirubin,Indirect 1.2 MG/DL (0.0-1.0); Blood Urea Nitrogen 46 MG/DL (7-18); Calcium 8.6 MG/DL (8.5-10.1); Estimated Glom Filtration Rate 26 ML/MIN; Glucose 97 MG/DL (74-106); Total Protein 6.3 G/DL (6.4-8.3)
[2020-02-22] MEDS: POLYETHYLENE GLYCOL POWDER 17 GM PACK PO SCH (08:35)
[2020-02-22] MEDS: ASPIRIN EC 325 MG TABLET PO SCH (08:36)
[2020-02-22] MEDS: carvediloL 12.5 MG TABLET PO SCH (08:36)
[2020-02-22] MEDS: INSULIN REGULAR 100 UNIT/ML SUBCUT SCH (08:37)
[2020-02-22] MEDS: AMIODARONE 200 MG TABLET PO SCH (08:37)
[2020-02-22] MEDS: GABAPENTIN 600 MG TABLET PO SCH (08:37)
[2020-02-22] MEDS: FERROUS SULFATE 325 MG TABLET PO SCH (08:37)
[2020-02-22] MEDS: DOCUSATE SODIUM 100 MG CAPSULE PO SCH (08:37)
[2020-02-22] MEDS: glipiZIDE 5 MG TABLET PO SCH (08:37)
[2020-02-22] MEDS: CHLORHEXIDINE 0.12% ORAL RINSE 60 ML BOTTLE SWISH/SPIT SCH (08:39)
[2020-02-22 12:22] VITALS: BP 82/55
== END 2020-02-22 13:33 | disposition home health service (06) | DRG 236 ==
LOC: N.TELES 14:45 → N.CVR 02-15 09:54 → N.ICU 02-16 21:50 → N.TELES 02-17 11:22

== ENCOUNTER 2021-11-15 17:22 | Inpatient (IN) ==
[2021-11-15] MEDS ORDERED: DIPH/TET/ACEL PERT BOOSTER VACCINE 0.5 ML VIAL IM ONE (18:48)
[2021-11-15] MEDS ORDERED: SODIUM CHLORIDE 0.9% 500 ML IV STA (18:48)
[2021-11-15 19:01] LABS: Basophils % 0.5 % (0.0-0.8); Eosinophils # 0.1 10*3/uL (0.0-0.87); Eosinophils % 1.3 % (0.00-10.9); Hematocrit 47.8 VOL% (42.0-52.0); Hemoglobin 15.6 GM/DL (14.0-18.0); Immature Granulocytes % 0.5 %; Immature Granulocytes Absolute 0.04 #; Lymphocytes # 2.1 10*3/uL (1.4-4.0); Lymphocytes % 23.6 % (21.2-54.2); Mean Corpuscular HGB Conc 32.6 GM/DL (32-36); Mean Corpuscular Volume 88.4 FL (87-102); Mean Platelet Volume 10.7 FL (9.6-12.0); Monocytes # 0.7 10*3/uL (0.11-0.8); Monocytes % 8.3 % (1.7-12.7); Neutrophils % 65.8 % (38.7-73.9); Platelet Count 226 T/CUMM (130-400); Red Blood Count 5.41 MC/CUMM (3.8-5.5); Red Cell Distribution Width 15.5 % (9.3-17.3); White Blood Count 8.8 T/CUMM (4-12)
[2021-11-15 19:36] LABS: Albumin 3.3 G/DL (3.4-5.0); Bilirubin,Total 2.4 MG/DL (0.20-1.00); CKMB % 0.76 %; Calcium 9.5 MG/DL (8.5-10.1); Potassium 4.3 MMOL/L (3.5-5.1); Total Protein 8.3 G/DL (6.4-8.2)
[2021-11-15 20:19] LABS: Urine Appearance Clear (Clear); Urine Color Yellow (Yellow)
[2021-11-15 20:20] LABS: Bilirubin,Urine Negative (Negative); Blood, Urine Small mg/dL (Negative); Glucose,Urine (UA) Negative (Negative); Ketones,Urine Negative (Negative); Nitrite,Urine Negative (Negative); Protein,Urine 100 mg/dL (Negative); Urine Urobilinogen 0.2 eU/dL (<2.0)
[2021-11-15 20:27] LABS: Granular Casts,Urine 1 /LPF (0-1); Hyaline Casts,Urine 5 /LPF (0-3); Mucus,Urine Occasional /LPF (Occasional); RBC,Urine 6 /HPF (0-4); Squamous Epithelial Cell,Urine Occasional /HPF (0-10)
[2021-11-15] MEDS ORDERED: DEXTROSE 50% 25 GM/50 ML VIAL IV STA (20:28)
[2021-11-15 20:29] LABS: Barbiturates Screen,Urine Negative (Negative); Benzodiazepines Screen,Urine Negative (Negative); Cannabinoid Screen,Urine Negative (Negative); Opiate Screen,Urine Negative (Negative); Phencyclidine Screen,Urine Negative (Negative)
[2021-11-15] MEDS ORDERED: DEXTROSE 50% 25 GM/50 ML SYRINGE IV ONE (20:38)
[2021-11-15] MEDS ORDERED: ONDANSETRON 4 MG/2 ML VIAL IV PRN (20:50)
[2021-11-15] MEDS ORDERED: ACETAMINOPHEN 325 MG TABLET PO PRN (20:50)
[2021-11-15] MEDS ORDERED: SODIUM CHLORIDE 0.9% 1,000 ML IV SCH (21:00)
[2021-11-15] MEDS: ENOXAPARIN 30 MG/0.3 ML SYRINGE SUBCUT SCH (21:50)
[2021-11-15] MEDS ORDERED: DEXTROSE 10% 250 ML BAG IV PRN (21:54)
[2021-11-15] MEDS ORDERED: GLUCAGON 1 MG VIAL IM PRN (21:54)
[2021-11-15] MEDS ORDERED: carvediloL 12.5 MG TABLET PO SCH (22:00)
[2021-11-16] MEDS: ATORVASTATIN 40 MG TABLET PO SCH ×2 (00:05→21:07)
[2021-11-16] MEDS: GABAPENTIN 300 MG CAPSULE PO SCH ×3 (00:06→21:07)
[2021-11-16] MEDS: AMIODARONE 200 MG TABLET PO SCH ×2 (00:24→08:22)
[2021-11-16 01:40] LABS: Basophils % 0.4 % (0.0-0.8); Eosinophils # 0.1 10*3/uL (0.0-0.87); Eosinophils % 1.9 % (0.00-10.9); Hematocrit 47.4 VOL% (42.0-52.0); Hemoglobin 15.1 GM/DL (14.0-18.0); Immature Granulocytes % 0.4 %; Immature Granulocytes Absolute 0.03 #; Lymphocytes # 2.4 10*3/uL (1.4-4.0); Lymphocytes % 33.8 % (21.2-54.2); Mean Corpuscular HGB Conc 31.9 GM/DL (32-36); Mean Corpuscular Volume 90.1 FL (87-102); Mean Platelet Volume 10.8 FL (9.6-12.0); Monocytes # 0.7 10*3/uL (0.11-0.8); Monocytes % 10.4 % (1.7-12.7); Neutrophils % 53.1 % (38.7-73.9); Platelet Count 200 T/CUMM (130-400); Red Blood Count 5.26 MC/CUMM (3.8-5.5); Red Cell Distribution Width 15.6 % (9.3-17.3)
[2021-11-16 03:09] LABS: Albumin 2.9 G/DL (3.4-5.0); Bilirubin,Total 1.9 MG/DL (0.20-1.00); Osmolality,Calculated 286.8 MOS/KG (273-304); Potassium 4.2 MMOL/L (3.5-5.1); Total Protein 7.4 G/DL (6.4-8.2)
[2021-11-16] MEDS: INSULIN REGULAR 100 UNIT/ML SUBCUT SCH ×4 (07:31→21:08)
[2021-11-16] MEDS ORDERED: carvediloL 12.5 MG TABLET PO SCH (08:00)
[2021-11-16] MEDS: PANTOPRAZOLE 40 MG TABLET PO SCH (08:07)
[2021-11-16] MEDS: ASPIRIN EC 81 MG TABLET PO SCH (08:08)
[2021-11-16] MEDS: POTASSIUM CHLORIDE 20 MEQ TABLET PO SCH ×2 (08:12→21:07)
[2021-11-16] MEDS ORDERED: FUROSEMIDE 40 MG TABLET PO SCH (09:00)
[2021-11-16] MEDS ORDERED: TUBERCULIN SKIN TEST 0.1 ML SYRINGE INTRADERM ONE (10:30)
[2021-11-16] MEDS: ENOXAPARIN 30 MG/0.3 ML SYRINGE SUBCUT SCH (21:06)
[2021-11-16] MEDS: ASCORBIC ACID 500 MG TABLET PO SCH (21:07)
[2021-11-17 05:49] LABS: Basophils % 0.4 % (0.0-0.8); Eosinophils # 0.2 10*3/uL (0.0-0.87); Eosinophils % 2.1 % (0.00-10.9); Hematocrit 44.5 VOL% (42.0-52.0); Hemoglobin 14.4 GM/DL (14.0-18.0); Immature Granulocytes % 0.3 %; Immature Granulocytes Absolute 0.02 #; Lymphocytes # 2.3 10*3/uL (1.4-4.0); Lymphocytes % 33.3 % (21.2-54.2); Mean Corpuscular HGB Conc 32.4 GM/DL (32-36); Mean Corpuscular Volume 89.2 FL (87-102); Mean Platelet Volume 10.9 FL (9.6-12.0); Monocytes # 0.6 10*3/uL (0.11-0.8); Monocytes % 8.3 % (1.7-12.7); Neutrophils % 55.6 % (38.7-73.9); Platelet Count 230 T/CUMM (130-400); Red Blood Count 4.99 MC/CUMM (3.8-5.5); Red Cell Distribution Width 15.8 % (9.3-17.3)
[2021-11-17 06:19] LABS: Calcium 8.6 MG/DL (8.5-10.1); Osmolality,Calculated 294.4 MOS/KG (273-304); Potassium 3.5 MMOL/L (3.5-5.1)
[2021-11-17] MEDS: INSULIN REGULAR 100 UNIT/ML SUBCUT SCH ×4 (07:00→20:18)
[2021-11-17] MEDS: ASPIRIN EC 81 MG TABLET PO SCH (08:56)
[2021-11-17] MEDS: PANTOPRAZOLE 40 MG TABLET PO SCH (08:57)
[2021-11-17] MEDS: POTASSIUM CHLORIDE 20 MEQ TABLET PO SCH ×2 (08:57→21:20)
[2021-11-17] MEDS: LACTATED RINGERS 1,000 ML IV SCH ×2 (08:57→21:23)
[2021-11-17] MEDS: GABAPENTIN 300 MG CAPSULE PO SCH ×2 (08:57→21:20)
[2021-11-17] MEDS: ASCORBIC ACID 500 MG TABLET PO SCH ×2 (08:57→21:19)
[2021-11-17] MEDS: ATORVASTATIN 40 MG TABLET PO SCH (21:19)
[2021-11-17] MEDS: ENOXAPARIN 30 MG/0.3 ML SYRINGE SUBCUT SCH (21:20)
[2021-11-18] MEDS: PANTOPRAZOLE 40 MG TABLET PO SCH (08:24)
[2021-11-18] MEDS: INSULIN REGULAR 100 UNIT/ML SUBCUT SCH ×4 (08:24→20:13)
[2021-11-18] MEDS: POTASSIUM CHLORIDE 20 MEQ TABLET PO SCH ×2 (08:24→20:10)
[2021-11-18] MEDS: ASPIRIN EC 81 MG TABLET PO SCH (08:24)
[2021-11-18] MEDS: GABAPENTIN 300 MG CAPSULE PO SCH ×2 (08:25→20:10)
[2021-11-18] MEDS: ASCORBIC ACID 500 MG TABLET PO SCH ×2 (08:25→20:10)
[2021-11-18 08:53] LABS: Basophils % 0.3 % (0.0-0.8); Eosinophils # 0.2 10*3/uL (0.0-0.87); Eosinophils % 2.6 % (0.00-10.9); Hematocrit 43.9 VOL% (42.0-52.0); Immature Granulocytes % 0.4 %; Immature Granulocytes Absolute 0.03 #; Lymphocytes # 2.2 10*3/uL (1.4-4.0); Lymphocytes % 27.2 % (21.2-54.2); Mean Corpuscular HGB Conc 31.9 GM/DL (32-36); Mean Corpuscular Volume 89.6 FL (87-102); Mean Platelet Volume 10.6 FL (9.6-12.0); Monocytes # 0.5 10*3/uL (0.11-0.8); Monocytes % 6.2 % (1.7-12.7); Neutrophils % 63.3 % (38.7-73.9); Platelet Count 221 T/CUMM (130-400); Red Cell Distribution Width 15.6 % (9.3-17.3)
[2021-11-18 09:03] LABS: Alanine Aminotransferase 42 U/L (16-61); Albumin 2.6 G/DL (3.4-5.0); Alkaline Phosphatase 106 U/L (45-117); Aspartate Amino Transferase 67 U/L (0-37); Blood Urea Nitrogen 43 MG/DL (7-18); Calcium 8.5 MG/DL (8.5-10.1); Carbon Dioxide 28 MMOL/L (21-32); Chloride 108 MMOL/L (98-107); Estimated Glom Filtration Rate 22 ML/MIN; Glucose 132 MG/DL (74-106); Osmolality,Calculated 293.3 MOS/KG (273-304); Sodium 141 MMOL/L (136-145); Total Protein 6.9 G/DL (6.4-8.2)
[2021-11-18] MEDS: ENOXAPARIN 30 MG/0.3 ML SYRINGE SUBCUT SCH (20:10)
[2021-11-18] MEDS: ATORVASTATIN 40 MG TABLET PO SCH (20:10)
[2021-11-19] MEDS: PANTOPRAZOLE 40 MG TABLET PO SCH (08:14)
[2021-11-19] MEDS: GABAPENTIN 300 MG CAPSULE PO SCH ×2 (08:14→20:40)
[2021-11-19] MEDS: ASCORBIC ACID 500 MG TABLET PO SCH ×2 (08:14→20:40)
[2021-11-19] MEDS: ASPIRIN EC 81 MG TABLET PO SCH (08:14)
[2021-11-19] MEDS: POTASSIUM CHLORIDE 20 MEQ TABLET PO SCH ×2 (08:15→20:08)
[2021-11-19] MEDS: INSULIN REGULAR 100 UNIT/ML SUBCUT SCH ×4 (08:20→20:08)
[2021-11-19 08:50] LABS: Basophils % 0.5 % (0.0-0.8); Eosinophils # 0.2 10*3/uL (0.0-0.87); Eosinophils % 2.4 % (0.00-10.9); Hematocrit 45.7 VOL% (42.0-52.0); Hemoglobin 14.5 GM/DL (14.0-18.0); Immature Granulocytes % 0.4 %; Immature Granulocytes Absolute 0.03 #; Lymphocytes # 2.2 10*3/uL (1.4-4.0); Lymphocytes % 27.5 % (21.2-54.2); Mean Corpuscular HGB Conc 31.7 GM/DL (32-36); Mean Corpuscular Volume 90.3 FL (87-102); Mean Platelet Volume 11.5 FL (9.6-12.0); Monocytes # 0.5 10*3/uL (0.11-0.8); Monocytes % 5.9 % (1.7-12.7); Neutrophils % 63.3 % (38.7-73.9); Platelet Count 197 T/CUMM (130-400); Red Blood Count 5.06 MC/CUMM (3.8-5.5); Red Cell Distribution Width 15.8 % (9.3-17.3); White Blood Count 8.1 T/CUMM (4-12)
[2021-11-19 09:12] LABS: Alanine Aminotransferase 43 U/L (16-61); Albumin 2.5 G/DL (3.4-5.0); Alkaline Phosphatase 105 U/L (45-117); Aspartate Amino Transferase 61 U/L (0-37); Blood Urea Nitrogen 34 MG/DL (7-18); Calcium 8.9 MG/DL (8.5-10.1); Carbon Dioxide 25 MMOL/L (21-32); Chloride 109 MMOL/L (98-107); Estimated Glom Filtration Rate 23 ML/MIN; Glucose 99 MG/DL (74-106); Osmolality,Calculated 286.4 MOS/KG (273-304); Potassium 4.1 MMOL/L (3.5-5.1); Sodium 140 MMOL/L (136-145); Total Protein 6.9 G/DL (6.4-8.2)
[2021-11-19] MEDS: ATORVASTATIN 40 MG TABLET PO SCH (20:40)
[2021-11-19] MEDS: ENOXAPARIN 30 MG/0.3 ML SYRINGE SUBCUT SCH (20:40)
[2021-11-20 05:27] LABS: Basophils % 0.4 % (0.0-0.8); Eosinophils # 0.2 10*3/uL (0.0-0.87); Eosinophils % 2.8 % (0.00-10.9); Hematocrit 43.2 VOL% (42.0-52.0); Hemoglobin 13.6 GM/DL (14.0-18.0); Immature Granulocytes % 0.3 %; Immature Granulocytes Absolute 0.02 #; Lymphocytes # 2.2 10*3/uL (1.4-4.0); Lymphocytes % 30.9 % (21.2-54.2); Mean Corpuscular HGB Conc 31.5 GM/DL (32-36); Mean Corpuscular Volume 90.6 FL (87-102); Mean Platelet Volume 11.4 FL (9.6-12.0); Monocytes # 0.5 10*3/uL (0.11-0.8); Monocytes % 6.5 % (1.7-12.7); Neutrophils % 59.1 % (38.7-73.9); Platelet Count 211 T/CUMM (130-400); Red Blood Count 4.77 MC/CUMM (3.8-5.5); Red Cell Distribution Width 15.8 % (9.3-17.3); White Blood Count 7.2 T/CUMM (4-12)
[2021-11-20 06:11] LABS: Alanine Aminotransferase 54 U/L (16-61); Albumin 2.2 G/DL (3.4-5.0); Alkaline Phosphatase 99 U/L (45-117); Aspartate Amino Transferase 81 U/L (0-37); Blood Urea Nitrogen 33 MG/DL (7-18); Calcium 8.6 MG/DL (8.5-10.1); Carbon Dioxide 21 MMOL/L (21-32); Chloride 110 MMOL/L (98-107); Estimated Glom Filtration Rate 23 ML/MIN; Glucose 111 MG/DL (74-106); Osmolality,Calculated 282.7 MOS/KG (273-304); Potassium 4.7 MMOL/L (3.5-5.1); Sodium 138 MMOL/L (136-145); Total Protein 6.7 G/DL (6.4-8.2)
[2021-11-20] MEDS: INSULIN REGULAR 100 UNIT/ML SUBCUT SCH ×2 (07:01→10:55)
[2021-11-20] MEDS: ASPIRIN EC 81 MG TABLET PO SCH (08:26)
[2021-11-20] MEDS: GABAPENTIN 300 MG CAPSULE PO SCH (08:26)
[2021-11-20] MEDS: ASCORBIC ACID 500 MG TABLET PO SCH (08:26)
[2021-11-20] MEDS: PANTOPRAZOLE 40 MG TABLET PO SCH (08:26)
[2021-11-20] MEDS: POTASSIUM CHLORIDE 20 MEQ TABLET PO SCH (08:26)
[2021-11-20 16:04] VITALS: BP 132/77
== END 2021-11-20 16:52 | disposition swing bed (61) | DRG 312 ==
LOC: EDUNIT# → EDBD → N.ED 17:22 → N.3E 17:22 → SUATTDRO 11-16 10:04
PROVIDERS: ADMIT Internal Medicine; ATTEND Internal Medicine

== ENCOUNTER 2022-08-08 18:06 | Inpatient (IN) ==
[2022-08-08] MEDS ORDERED: ONDANSETRON 4 MG/2 ML VIAL IV STA (18:56)
[2022-08-08] MEDS ORDERED: SODIUM CHLORIDE 0.9% 500 ML IV STA (18:56)
[2022-08-08] MEDS ORDERED: methylPREDNISolone SOD SUC 125 MG/2 ML VIAL IV STA (18:56)
[2022-08-08 19:07] LABS: Basophils % 0.5 % (0.0-0.8); Eosinophils % 0.2 % (0.00-10.9); Hematocrit 34.6 VOL% (42.0-52.0); Hemoglobin 11.3 GM/DL (14.0-18.0); Immature Granulocytes % 0.7 %; Immature Granulocytes Absolute 0.06 #; Lymphocytes # 0.8 10*3/uL (1.4-4.0); Lymphocytes % 8.7 % (21.2-54.2); Mean Corpuscular HGB Conc 32.7 GM/DL (32-36); Mean Corpuscular Volume 90.3 FL (87-102); Monocytes # 0.8 10*3/uL (0.11-0.8); Neutrophils % 80.9 % (38.7-73.9); Platelet Count 243 T/CUMM (130-400); Red Blood Count 3.83 MC/CUMM (3.8-5.5); Red Cell Distribution Width 16.9 % (9.3-17.3); White Blood Count 8.8 T/CUMM (4-12)
[2022-08-08 19:14] LABS: INR 1.1; PT Patient Result 11.9 SECS (10.1-12.1)
[2022-08-08 19:30] LABS: Albumin 2.8 G/DL (3.4-5.0); Bilirubin,Total 0.6 MG/DL (0.20-1.00); Calcium 8.9 MG/DL (8.5-10.1); Osmolality,Calculated 303.2 MOS/KG (273-304); Total Protein 6.8 G/DL (6.4-8.2)
[2022-08-08] MEDS ORDERED: INSULIN REGULAR 10 UNIT, CALCIUM GLUCONATE 1,000 MG in DEXTROSE 10% 250 ML IV ONE (19:51)
[2022-08-08 20:59] LABS: Bilirubin,Urine Negative (Negative); Blood, Urine Trace mg/dL (Negative); Glucose,Urine (UA) Negative (Negative); Ketones,Urine Negative (Negative); Nitrite,Urine Negative (Negative); Protein,Urine 100 mg/dL (Negative); Urine Appearance Clear (Clear); Urine Color Yellow (Yellow); Urine Urobilinogen 0.2 eU/dL (<2.0)
[2022-08-08 21:01] LABS: Bacteria,Urine Occasional /HPF (Few); Mucus,Urine Occasional /LPF (Occasional); RBC,Urine 2 /HPF (0-4)
[2022-08-08] MEDS ORDERED: SIMETHICONE CHEW 125 MG TABLET PO PRN (21:14)
[2022-08-08] MEDS ORDERED: ONDANSETRON 4 MG/2 ML VIAL IV PRN (21:14)
[2022-08-08] MEDS ORDERED: FUROSEMIDE 40 MG/4 ML VIAL IV STA (21:31)
[2022-08-08] MEDS: ALBUTEROL 2.5 MG/3 ML NEB RESP TX SCH (21:42)
[2022-08-08 22:03] LABS: Arterial Base Excess iSTAT -4 MMOL/L (-2.5-2.5); Arterial Bicarbonate iSTAT 21.1 MMOL/L (20-26); Arterial O2 Saturation iSTAT 96 % (95-100); Arterial PCO2 iSTAT 40 MM HG (35-48); Arterial PO2 iSTAT 86 MM HG (80-95); Arterial Total CO2 iSTAT 22 MMO/L (23-27); Arterial pH iSTAT 7.335 (7.35-7.45)
[2022-08-09] MEDS ORDERED: SODIUM POLYSTYRENE SULFATE 15 GM/60 ML BOTTLE PO ONE (00:09)
[2022-08-09] MEDS: ALBUTEROL 2.5 MG/3 ML NEB RESP TX SCH ×4 (02:02→20:37)
[2022-08-09] MEDS: methylPREDNISolone SOD SUC 40 MG/1 ML VIAL IV SCH ×3 (03:52→18:15)
[2022-08-09 06:39] LABS: Calcium 8.8 MG/DL (8.5-10.1); Osmolality,Calculated 316.8 MOS/KG (273-304); Potassium 5.1 MMOL/L (3.5-5.1)
[2022-08-09 06:41] LABS: Basophils % 0.2 % (0.0-0.8); Hematocrit 31.7 VOL% (42.0-52.0); Hemoglobin 10.2 GM/DL (14.0-18.0); Immature Granulocytes % 0.7 %; Immature Granulocytes Absolute 0.04 #; Lymphocytes # 0.5 10*3/uL (1.4-4.0); Lymphocytes % 9.4 % (21.2-54.2); Mean Corpuscular HGB Conc 32.2 GM/DL (32-36); Mean Corpuscular Volume 90.8 FL (87-102); Mean Platelet Volume 10.1 FL (9.6-12.0); Monocytes # 0.1 10*3/uL (0.11-0.8); Monocytes % 2.1 % (1.7-12.7); Neutrophils % 87.6 % (38.7-73.9); Platelet Count 246 T/CUMM (130-400); Red Blood Count 3.49 MC/CUMM (3.8-5.5); Red Cell Distribution Width 16.6 % (9.3-17.3); White Blood Count 5.8 T/CUMM (4-12)
[2022-08-09] MEDS: HEPARIN 5,000 UNIT/1 ML VIAL SUBCUT SCH ×2 (09:17→20:25)
[2022-08-09] MEDS: PANTOPRAZOLE 40 MG TABLET PO SCH (09:17)
[2022-08-09] MEDS: DOCUSATE SODIUM 100 MG CAPSULE PO SCH ×2 (09:17→20:24)
[2022-08-09] MEDS: ATORVASTATIN 40 MG TABLET PO SCH (20:24)
[2022-08-09] MEDS: ACETAMINOPHEN 325 MG TABLET PO PRN (20:25)
[2022-08-10] MEDS: ALBUTEROL 2.5 MG/3 ML NEB RESP TX SCH ×4 (01:58→19:10)
[2022-08-10] MEDS: methylPREDNISolone SOD SUC 40 MG/1 ML VIAL IV SCH ×3 (03:24→18:11)
[2022-08-10 05:07] LABS: Basophils % 0.1 % (0.0-0.8); Hematocrit 30.8 VOL% (42.0-52.0); Immature Granulocytes % 0.4 %; Immature Granulocytes Absolute 0.04 #; Lymphocytes # 0.6 10*3/uL (1.4-4.0); Lymphocytes % 5.6 % (21.2-54.2); Mean Corpuscular HGB Conc 32.5 GM/DL (32-36); Mean Corpuscular Volume 90.6 FL (87-102); Mean Platelet Volume 10.3 FL (9.6-12.0); Monocytes # 0.4 10*3/uL (0.11-0.8); Monocytes % 3.9 % (1.7-12.7); Platelet Count 250 T/CUMM (130-400); Red Cell Distribution Width 16.4 % (9.3-17.3); White Blood Count 10.4 T/CUMM (4-12)
[2022-08-10 05:48] LABS: Potassium 4.8 MMOL/L (3.5-5.1)
[2022-08-10] MEDS: DOCUSATE SODIUM 100 MG CAPSULE PO SCH ×2 (09:02→20:54)
[2022-08-10] MEDS: PANTOPRAZOLE 40 MG TABLET PO SCH (09:02)
[2022-08-10] MEDS: ASPIRIN EC 81 MG TABLET PO SCH (09:03)
[2022-08-10] MEDS: HEPARIN 5,000 UNIT/1 ML VIAL SUBCUT SCH ×2 (09:03→20:54)
[2022-08-10] MEDS: ACETAMINOPHEN 325 MG TABLET PO PRN ×2 (11:47→23:47)
[2022-08-10] MEDS: ATORVASTATIN 40 MG TABLET PO SCH (20:54)
[2022-08-11] MEDS: ALBUTEROL 2.5 MG/3 ML NEB RESP TX SCH ×4 (01:05→18:20)
[2022-08-11] MEDS: methylPREDNISolone SOD SUC 40 MG/1 ML VIAL IV SCH ×3 (02:08→23:08)
[2022-08-11 05:50] LABS: Hematocrit 31.2 VOL% (42.0-52.0); Hemoglobin 10.1 GM/DL (14.0-18.0); Immature Granulocytes % 0.4 %; Immature Granulocytes Absolute 0.04 #; Lymphocytes # 0.5 10*3/uL (1.4-4.0); Lymphocytes % 5.8 % (21.2-54.2); Mean Corpuscular HGB Conc 32.4 GM/DL (32-36); Mean Corpuscular Volume 90.2 FL (87-102); Mean Platelet Volume 10.3 FL (9.6-12.0); Monocytes # 0.3 10*3/uL (0.11-0.8); Monocytes % 3.2 % (1.7-12.7); Neutrophils % 90.6 % (38.7-73.9); Platelet Count 272 T/CUMM (130-400); Red Blood Count 3.46 MC/CUMM (3.8-5.5); Red Cell Distribution Width 16.6 % (9.3-17.3); White Blood Count 8.9 T/CUMM (4-12)
[2022-08-11 06:08] LABS: Calcium 8.3 MG/DL (8.5-10.1); Osmolality,Calculated 319.8 MOS/KG (273-304); Potassium 3.6 MMOL/L (3.5-5.1)
[2022-08-11 06:32] LABS: Lymphocytes 6 % (20-55); Total Cells Counted 100
[2022-08-11 06:33] LABS: Platelet Estimate Normal
[2022-08-11] MEDS: DOCUSATE SODIUM 100 MG CAPSULE PO SCH ×2 (08:57→20:02)
[2022-08-11] MEDS: ASPIRIN EC 81 MG TABLET PO SCH (08:57)
[2022-08-11] MEDS: AMIODARONE 200 MG TABLET PO SCH (08:57)
[2022-08-11] MEDS: PANTOPRAZOLE 40 MG TABLET PO SCH (08:57)
[2022-08-11] MEDS: HEPARIN 5,000 UNIT/1 ML VIAL SUBCUT SCH ×2 (08:58→20:03)
[2022-08-11] MEDS: TAMSULOSIN 0.4 MG CAPSULE PO SCH (20:02)
[2022-08-11] MEDS: ATORVASTATIN 40 MG TABLET PO SCH (20:03)
[2022-08-11] MEDS: ACETAMINOPHEN 325 MG TABLET PO PRN (20:03)
[2022-08-12] MEDS: ALBUTEROL 2.5 MG/3 ML NEB RESP TX SCH ×4 (00:20→19:45)
[2022-08-12 05:36] LABS: Basophils % 0.1 % (0.0-0.8); Hematocrit 32.2 VOL% (42.0-52.0); Hemoglobin 10.5 GM/DL (14.0-18.0); Immature Granulocytes % 0.7 %; Immature Granulocytes Absolute 0.06 #; Lymphocytes # 0.5 10*3/uL (1.4-4.0); Lymphocytes % 6.1 % (21.2-54.2); Mean Corpuscular HGB Conc 32.6 GM/DL (32-36); Mean Corpuscular Volume 89.4 FL (87-102); Mean Platelet Volume 9.8 FL (9.6-12.0); Monocytes # 0.4 10*3/uL (0.11-0.8); Monocytes % 4.4 % (1.7-12.7); Neutrophils % 88.7 % (38.7-73.9); Platelet Count 260 T/CUMM (130-400); Red Cell Distribution Width 16.3 % (9.3-17.3); White Blood Count 8.6 T/CUMM (4-12)
[2022-08-12 05:53] LABS: Calcium 8.2 MG/DL (8.5-10.1); Osmolality,Calculated 321.7 MOS/KG (273-304); Potassium 3.8 MMOL/L (3.5-5.1)
[2022-08-12] MEDS: DOCUSATE SODIUM 100 MG CAPSULE PO SCH ×2 (09:17→21:29)
[2022-08-12] MEDS: PANTOPRAZOLE 40 MG TABLET PO SCH (09:17)
[2022-08-12] MEDS: AMIODARONE 200 MG TABLET PO SCH (09:17)
[2022-08-12] MEDS: ASPIRIN EC 81 MG TABLET PO SCH (09:17)
[2022-08-12] MEDS: HEPARIN 5,000 UNIT/1 ML VIAL SUBCUT SCH ×2 (09:18→21:30)
[2022-08-12] MEDS: ACETAMINOPHEN 325 MG TABLET PO PRN ×2 (09:30→21:30)
[2022-08-12] MEDS: methylPREDNISolone SOD SUC 40 MG/1 ML VIAL IV SCH ×2 (11:25→22:32)
[2022-08-12] MEDS: INSULIN LISPRO 100 UNIT/ML SUBCUT SCH ×3 (11:38→21:30)
[2022-08-12 12:26] LABS: Bacteria,Urine Occasional /HPF (Few); RBC,Urine 1 /HPF (0-4)
[2022-08-12 12:27] LABS: Bilirubin,Urine Negative (Negative); Blood, Urine Trace mg/dL (Negative); Glucose,Urine (UA) 500 mg/dL (Negative); Ketones,Urine Negative (Negative); Nitrite,Urine Negative (Negative); Protein,Urine 100 mg/dL (Negative); Urine Appearance Clear (Clear); Urine Color Yellow (Yellow)
[2022-08-12] MEDS: ATORVASTATIN 40 MG TABLET PO SCH (21:30)
[2022-08-12] MEDS: TAMSULOSIN 0.4 MG CAPSULE PO SCH (21:30)
[2022-08-13] MEDS: ALBUTEROL 2.5 MG/3 ML NEB RESP TX SCH ×4 (01:09→19:15)
[2022-08-13 06:00] LABS: Basophils % 0.4 % (0.0-0.8); Eosinophils % 0.2 % (0.00-10.9); Hematocrit 35.6 VOL% (42.0-52.0); Hemoglobin 11.6 GM/DL (14.0-18.0); Immature Granulocytes % 2.1 %; Immature Granulocytes Absolute 0.22 #; Lymphocytes # 0.7 10*3/uL (1.4-4.0); Lymphocytes % 7.1 % (21.2-54.2); Mean Corpuscular HGB Conc 32.6 GM/DL (32-36); Mean Corpuscular Volume 90.1 FL (87-102); Mean Platelet Volume 9.7 FL (9.6-12.0); Monocytes # 0.3 10*3/uL (0.11-0.8); Monocytes % 2.8 % (1.7-12.7); Neutrophils % 87.4 % (38.7-73.9); Platelet Count 294 T/CUMM (130-400); Red Blood Count 3.95 MC/CUMM (3.8-5.5); Red Cell Distribution Width 16.4 % (9.3-17.3); White Blood Count 10.3 T/CUMM (4-12)
[2022-08-13 06:18] LABS: Calcium 8.5 MG/DL (8.5-10.1); Potassium 4.4 MMOL/L (3.5-5.1)
[2022-08-13] MEDS: DOCUSATE SODIUM 100 MG CAPSULE PO SCH ×2 (09:03→21:38)
[2022-08-13] MEDS: PANTOPRAZOLE 40 MG TABLET PO SCH (09:03)
[2022-08-13] MEDS: ASPIRIN EC 81 MG TABLET PO SCH (09:03)
[2022-08-13] MEDS: AMIODARONE 200 MG TABLET PO SCH (09:04)
[2022-08-13] MEDS: INSULIN LISPRO 100 UNIT/ML SUBCUT SCH ×4 (09:06→21:39)
[2022-08-13] MEDS: HEPARIN 5,000 UNIT/1 ML VIAL SUBCUT SCH ×2 (09:06→21:39)
[2022-08-13] MEDS: methylPREDNISolone SOD SUC 40 MG/1 ML VIAL IV SCH (11:28)
[2022-08-13] MEDS: ATORVASTATIN 40 MG TABLET PO SCH (21:38)
[2022-08-13] MEDS: TAMSULOSIN 0.4 MG CAPSULE PO SCH (21:38)
[2022-08-13] MEDS: ACETAMINOPHEN 325 MG TABLET PO PRN (21:39)
[2022-08-14] MEDS: ALBUTEROL 2.5 MG/3 ML NEB RESP TX SCH ×2 (03:04→09:46)
[2022-08-14 05:48] LABS: Basophils # 0.1 10*3/uL (0.0-0.2); Basophils % 0.5 % (0.0-0.8); Eosinophils % 0.2 % (0.00-10.9); Hemoglobin 12.9 GM/DL (14.0-18.0); Immature Granulocytes % 2.7 %; Immature Granulocytes Absolute 0.33 #; Lymphocytes # 1.5 10*3/uL (1.4-4.0); Lymphocytes % 12.3 % (21.2-54.2); Mean Corpuscular HGB Conc 33.1 GM/DL (32-36); Mean Corpuscular Volume 89.9 FL (87-102); Mean Platelet Volume 10.2 FL (9.6-12.0); Monocytes # 0.7 10*3/uL (0.11-0.8); Monocytes % 5.2 % (1.7-12.7); Neutrophils % 79.1 % (38.7-73.9); Platelet Count 319 T/CUMM (130-400); Red Blood Count 4.34 MC/CUMM (3.8-5.5); Red Cell Distribution Width 16.7 % (9.3-17.3); White Blood Count 12.4 T/CUMM (4-12)
[2022-08-14 06:09] LABS: Calcium 8.7 MG/DL (8.5-10.1); Potassium 4.3 MMOL/L (3.5-5.1)
[2022-08-14 08:09] VITALS: BP 121/71
[2022-08-14] MEDS: ASPIRIN EC 81 MG TABLET PO SCH (08:17)
[2022-08-14] MEDS: INSULIN LISPRO 100 UNIT/ML SUBCUT SCH (08:17)
[2022-08-14] MEDS: DOCUSATE SODIUM 100 MG CAPSULE PO SCH (08:17)
[2022-08-14] MEDS: HEPARIN 5,000 UNIT/1 ML VIAL SUBCUT SCH (08:18)
[2022-08-14] MEDS: AMIODARONE 200 MG TABLET PO SCH (08:18)
[2022-08-14] MEDS: PANTOPRAZOLE 40 MG TABLET PO SCH (08:19)
== END 2022-08-14 10:50 | DRG 291 ==
LOC: N.ED 18:06 → N.EDINP 21:14 → SUATTDRO 21:14 → N.3E 22:30
PROVIDERS: ADMIT Hospitalist; ATTEND Hospitalist